=== PATIENT | male | born 1980 | race Caucasian/White ===

== ENCOUNTER 2019-05-27 18:58 | Emergency (ER) | payer OTHER ==
[2019-05-27] MEDS ORDERED: predniSONE 20 MG TABLET PO STA (19:10)
[2019-05-27] MEDS ORDERED: diphenhydrAMINE 25 MG CAPSULE PO STA (19:10)
--- NOTE | 2019-05-27 19:14 | ED Physician Documentation ---
History of Present Illness - Stated complaint Stated Complaint: ALLERGIC REACTION/THROAT TIGHT - Chief complaint Chief Complaint: Allergic Rx - History obtained from History obtained from: Patient - History of Present Illness Timing: Today, How many minutes ago (45) Pain level max: 0 Pain level now: 0 - Additonal information Additional information: 38-year-old male states that he was eating dinner tonight at a restaurant and noticed that there were mushrooms in the dinner. He is allergic to mushrooms. Took Zyrtec and made himself vomit. Nothing makes it better or worse. No difficulty breathing. No stridor. His throat feels itchy. Does not have any hives. Review of Systems Ten Systems: 10 systems reviewed and negative Constitutional: denies: Fever, Chills Ears: denies: Ear pain Nose: denies: Rhinorrhea / runny nose, Congestion Respiratory: denies: Cough GI: denies: Nausea, Vomiting, Diarrhea Skin: denies: Rash Musculoskeletal: denies: Neck pain, Back pain Neurologic: denies: Headache PD PAST MEDICAL HISTORY - Past Medical History Past Medical History: No - Past Surgical History Past Surgical History: No - Present Medications Home Medications: Ambulatory Orders Medication Instructions Recorded Confirmed Esomeprazole Magnesium [Nexium] 20 mg PO BID 05/27/19 05/27/19 Hydrochlorothiazide 12.5 mg PO DAILY 05/27/19 05/27/19 Loratadine [Claritin] 10 mg PO DAILY 05/27/19 05/27/19 predniSONE [Prednisone] 40 mg PO DAILY #10 tablet 05/27/19 - Allergies Allergies/Adverse Reactions: Allergies Allergy/AdvReac Type Severity Reaction Status Date / Time mushrooms Allergy Anaphylaxis Uncoded 05/27/19 19:16 - Living Situation Living Situation: reports: With family Living Arrangement: reports: At home - Social History Does the pt smoke?: No Does the pt drink ETOH?: No Does the pt have substance abuse?: No - Family History Family history: reports: Non contributory PD ED PE NORMAL - Vitals Vital signs reviewed: Yes - General General: Alert and oriented X 3, No acute distress - HEENT HEENT: Moist mucous membranes, Other (Mild posterior pharyngeal erythema, no tonsillar exudates. Uvula midline. No stridor.) - Neck Neck: Supple, no meningeal sign - Cardiac Cardiac: RRR - Respiratory Respiratory: No respiratory distress, Clear bilaterally - Abdomen Abdomen: Soft, Non tender, Non distended - Derm Derm: No rash - Extremities Extremities: No edema - Neuro Neuro: Alert and oriented X 3 Results - Vitals Vitals: Vital Signs - 24 hr 05/27/19 05/27/19 05/27/19 19:02 19:22 19:55 Temperature Heart Rate 95 87 81 Respiratory 24 18 11 L Rate Blood Pressure 156/91 H 154/99 H 141/97 H O2 Saturation 95 98 98 05/27/19 05/27/19 05/27/19 20:05 20:32 20:34 Temperature 36.6 C Heart Rate 82 82 82 Respiratory 18 13 18 Rate Blood Pressure 145/95 H 112/89 H 112/89 H O2 Saturation 97 96 97 Oxygen O2 Source Room air PD MEDICAL DECISION MAKING - ED course Complexity details: re-evaluated patient, considered differential, d/w patient ED course: Patient with an allergic reaction to mushrooms. Given prednisone and Benadryl here. No further symptoms in the emergency department. Throat tightness resolved. No urticaria. No stridor. No wheezing. He has an EpiPen for home. Patient and family counseled regarding signs and symptoms for which I believe and urgent re-evaluation would be necessary. Patient with good understanding of and agreement to plan and is comfortable going home at this time This document was made in part using voice recognition software. While efforts are made to proofread this document, sound alike and grammatical errors may occur. Departure - Departure Disposition: 01 Home, Self Care Clinical Impression: Allergic reaction Qualifiers: Encounter type: initial encounter Qualified Code(s): T78.40XA - Allergy, unspecified, initial encounter Condition: Good Instructions: ED Allergic Reaction General Other Follow-Up: your,doctor within 1 -2 weeks [Other] Prescriptions: predniSONE [Prednisone] 40 mg PO DAILY #10 tablet Comments: Take the steroids as directed. Return if you worsen. If you begin to have difficulty breathing, use your epinephrine pen and come straight to the emergency department. Discharge Date/Time: 05/27/19 20:39
[2019-05-27 20:33] VITALS: BP 112/89
== END 2019-05-27 20:39 | disposition home or self-care (01) ==
LOC: ED 18:58
DX: T78.1XXA Other adverse food reactions, not elsewhere classified, initial encounter (principal); X58.XXXA Exposure to other specified factors, initial encounter; Y92.511 Restaurant or cafe as the place of occurrence of the external cause; Z91.018 Allergy to other foods
CPT/HCPCS: 99282; 99284; A9270; J7512